=== PATIENT | male | born 1980 | race Caucasian/White ===

== ENCOUNTER 2025-06-10 12:09 | Emergency (ER) | payer MEDICAID ==
[~2025-06-10] VITALS: Ht 182.9 cm; Wt 93.6 kg
[2025-06-10 12:18] VITALS: BP 252/219; PULSE 78; RESP 18; TEMP 97.2; O2SAT 100
--- NOTE | 2025-06-10 13:16 | RADIOLOGY REPORT ---
EXAM: DI CERVICAL SPINE LTD HISTORY: NECK PAIN COMPARISON: None TECHNIQUE: AP, lateral, swimmer's, and odontoid views of the cervical spine were performed. FINDINGS: Fractures or scoliosis are are identified about the cervical spine. There is mild degenerative disc disease and moderate facet arthropathy. There is 3 mm anterolisthesis C4 on C5 without evidence of jumped facet. No significant degenerative changes. IMPRESSION: 1. No fracture of the cervical spine. 2. 3 mm anterolisthesis C4 on C5 without evidence of jumped facet. 3. Degenerative disc disease and facet arthropathy. Consider follow-up noncontrast MRI of the cervical spine for better characterization, especially if the patient complains of upper extremity radicular symptoms.
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
== END 2025-06-10 15:27 | disposition home or self-care (01) ==
LOC: ER 12:10
DX: M54.2 Cervicalgia (principal); Z88.0 Allergy status to penicillin; Z88.2 Allergy status to sulfonamides; V49.9XXA Car occupant (driver) (passenger) injured in unspecified traffic accident, initial encounter; Y93.89 Activity, other specified; Y92.89 Other specified places as the place of occurrence of the external cause; Y99.8 Other external cause status
CPT/HCPCS: 72040; 99284

== ENCOUNTER 2025-08-05 10:01 | Inpatient (IN) | payer MEDICAID ==
[~2025-08-05] VITALS: Ht 185.4 cm; Wt 91.4 kg
[2025-08-05] MEDS ORDERED: normal saline 1000ml 1,000 ML IV ONE (11:15)
[2025-08-05] MEDS: normal saline 1000ml 3,000 ML IV ONE (11:41)
[2025-08-05 11:46] LABS: MEAN PLATELET VOLUME 7.2 FL (7.4-10.4); RED CELL DISTRIBUTION WIDTH 16.6 % (11.5-14.5)
--- NOTE | 2025-08-05 11:46 | Physician Documentation ---
History of Present Illness CC: THERESE WILLSON MD ~ Chief Complaint: Leg Pain Stated Complaint: LEG PAIN Time Seen by MD: 10:56 OK to notify your PCP?: Yes Mode of Arrival: POV HPI 45 year old male came to the ER with cc of right leg swelling and pain for the past 10 days, he denies fever, trauma, he also c/o left leg pain and swelling less severe than the right for the past 4 days. He noticed right leg discharge for the past 2 days. he had previous h/o cellulitis, last hospitalization for cellulitis a year ago, denies h/o MRSA inf recently 2 days ago, he went to [facility] ER and was prescribed po antibiotics, but he couldnt pick them up he is currently homeless, and denies IVDU he has h/o hives to penicllin and sulfa drugs Tetanus witin 5 years: No Medication Reconciliation Allergies: Coded Allergies: Penicillins (Verified Allergy, Unknown, 06/10/25) Sulfa (Sulfonamide Antibiotics) (Verified Allergy, Unknown, 06/10/25) Past Medical History Past Medical History: Seizures Other Past Surgical History: right cheek injury and laceration repair Smoking Status: Former smoker Alcohol Use: Sober Drug Use: none Lives with: Other Lives In: Homeless Occupation: unemployed Review of Systems All Other Systems at this time: Reviewed and Negative Physical Exam Vital Signs: Temperature: 97.9, Source: Oral, Heart Rate: 94, Respiratory Rate: 16, BP: 108/61, Pulse Oximetry: 97, Weight: 91.400 Oxygen Flow Rate: 0 General Appearance: alert, no apparent distress Respiratory: lungs clear, normal breath sounds Chest: no accessory muscle use Cardiovascular: regular rate, rhythm Gastrointestinal: normal palpation, non-tender Legs both legs tender, extensive swelling and erythema present, extending from ankles to the knees, more severe on the right, streaks of redness extending to the thigh, dry and pigmented skin with discharge from the right leg, able to feel DP on both sides Progress Results/Orders Results/Orders Orders - SUZE VENTURA RES Urinalysis (08/05/25 11:11) Drug Screen, Urine (08/05/25 11:11) Vl Venous (08/05/25 11:17) Tib/Fib (08/05/25 11:48) Culture Blood (08/05/25 11:17) Normal Saline 1000ml (0.9% Sodium Chlori (08/05/25 11:40) Completed Orders - SUZE VENTURA RES LA (08/05/25 11:11) Cbc/Diff (08/05/25 11:11) CMP (08/05/25 11:11) Procalcitonin (08/05/25 11:11) Normal Saline 1000ml (0.9% Sodium Chlori (08/05/25 11:15) Vl Venous (08/05/25 11:17) Tib/Fib (08/05/25 11:48) Vancomycin*Pharmacy To Dose* (Vancomycin (08/05/25 11:35) Vancomycin/Ns 1 Gm Add-[place] (Vancomyc (08/05/25 11:45) Potassium Cl Sr Tablet (K-Dur Tablet) (08/05/25 12:40) Ketorolac Trometh 15mg/Ml Vial (Toradol (08/05/25 13:30) Medications Received in ER Medications (Trade) Dose Ordered Sig/Hui Route PRN Reason Start Time Stop Time Status Last Admin Dose Admin Sodium Chloride 3,000 ml @ 1,000 mls/hr ONCE ONCE IV 08/05/25 11:40 08/05/25 14:39 08/05/25 11:41 1,000 MLS/HR Vancomycin HCl 250 ml @ 166 mls/hr ONCE ONCE IV 08/05/25 11:45 08/05/25 13:15 DC 08/05/25 12:48 166 MLS/HR (K-DUR tablet) 20 meq ONCE ONCE PO 08/05/25 12:40 08/05/25 12:42 DC 08/05/25 13:37 20 MEQ (Toradol injection) 15 mg ONCE ONCE IV 08/05/25 13:30 08/05/25 13:31 DC 08/05/25 13:33 15 MG Vital Signs 08/05/25 08/05/25 08/05/25 08/05/25 10:01 10:59 13:33 13:40 Temp 97.9 Pulse 94 92 Resp 16 16 18 16 B/P (MAP) 108/61 138/83 (101) Pulse Ox 97 100 O2 Flow Rate 0 0 Laboratory Tests Test 08/05/25 11:28 08/05/25 11:33 Lactic Acid Level 1.1 White Blood Count 15.5 H Red Blood Count 4.02 L Hemoglobin 11.3 L Hematocrit 33.7 L Mean Corpuscular Volume 83.9 Mean Corpuscular Hemoglobin 28.2 Mean Corpuscular Hemoglobin Concent 33.6 Red Cell Distribution Width 16.6 H Platelet Count 355 Mean Platelet Volume 7.2 L Neutrophils (%) (Auto) 87.3 H Lymphocytes (%) (Auto) 4.1 L Monocytes (%) (Auto) 8.2 Eosinophils (%) (Auto) 0.1 Basophils (%) (Auto) 0.3 Neutrophils # (Auto) 13.5 H Lymphocytes # (Auto) 0.6 L Monocytes # (Auto) 1.3 H Eosinophils # (Auto) 0.0 Basophils # (Auto) 0.0 CBC Comment Sodium Level 133 L Potassium Level 3.2 L Chloride Level 99 Carbon Dioxide Level 23.0 L Anion Gap 11 Blood Urea Nitrogen 7 Creatinine 0.76 Estimated GFR/1.73 m2 > 90 BUN/Creatinine Ratio 9.2 L Glucose Level 102 Calcium Level 8.5 Total Bilirubin 0.4 Aspartate Amino Transf (AST/SGOT) 22 Alanine Aminotransferase (ALT/SGPT) 30 Alkaline Phosphatase 124 H Total Protein 6.5 Albumin 2.3 L Globulin 4.2 Albumin/Globulin Ratio 0.5 L Procalcitonin 0.42 Chemistry Comments Microbiology Date/Time Source Procedure Growth Status 08/05/25 11:33 Blood Arm Left Blood Culture - Preliminary NEGATIVE (LESS THAN 24 HOURS) Resulted Medical Decision Making Additional information obtaine: old records Findings 45 m homeless, presenting with b/l legs erythema, pain and swelling. exam s/o b/l cellulitis right > left other Dd include- right leg DVT and fracture labs ordered- cbc, cmp, procal, lactatem cultures of blood, venoud dopple RLE, and xray RLE As patient appears septic with soft BP- ordered 30ml/kg iv NS bolus and emperically started on iv vanco Labs showed ebc of 15, with normal procal, mild hypokalemia xray elg- no #, no foreign body venous doppler RLE- no DVT, but reactive LN in the groin as patient has extensive cellulitis with sepsis, he is being admitted to the hospitalist service General Diff Dx:Considerations: Include: Other Knee Diff Dx:Considerations: Include: Other Ankle Diff Dx:Considerations: Include: Other Foot Diff Dx:Considerations: Include: Cellulitis Toe Diff Dx:Considerations: Include: Other Additional Comment celluitis of the right knee and leg Departure Time of Disposition: 12:39 Admitted to Inpatient Unit: yes, to hospitalist (sign out given to Dr. Osorio, hospitalist) Impression: Primary Impression: Cellulitis of right lower leg Condition: Guarded Referrals: NO PRIMARY CARE PROVIDER (PCP) Signature Scribe Signature: , Attestation: Findings, assessment and plan, and dispo d/w UMAIR Martínez, RES Aug 05, 2025 11:46
--- NOTE | 2025-08-05 11:58 | RADIOLOGY REPORT ---
CLINICAL INDICATION: PAIN AND SWELLING TECHNIQUE: AP and lateral views of the right lower leg were performed. DI TIB/FIB 2 VWS COMPARISON: None FINDINGS/IMPRESSION: 1. No acute fracture of the right tibia or fibula. 2. Diffuse subcutaneous edema about the right lower leg. No radiopaque foreign bodies are identified in the soft tissues.
[2025-08-05 12:06] LABS: CREATININE 0.76 MG/DL (0.60-1.10); TOTAL CARBON DIOXIDE 23.0 MMOL/L (24-32); eCRCL 136 ML/MIN; eGFR > 90 ML/MIN
--- NOTE | 2025-08-05 12:39 | VASCULAR REPORT ---
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 : SUZE VENTURA, Preliminary Report The above named patient was referred for a NON-INVASIVE LOWER EXTREMITY VENOUS EXAMINATION. The evaluation includes grayscale imaging, color flow Doppler and spectral analysis of the major deep and superficial lower extremity veins. Left Lower Extremity Venous Study for DVT Patient ER [employer] Bilateral lower extremity edema/pain right greater left Vein Imaging (Right) CFV (R): Compressible, Spontaneous, Respirophasic, Augmentation Reflux: ms SFJ (R): Compressible, Spontaneous, Respirophasic, Augmentation Reflux: ms FEM (R): Compressible, Spontaneous, Respirophasic, Augmentation POP (R): Compressible, Spontaneous, Respirophasic, Augmentation Reflux: ms Reflux: ms DFV (R): Compressible, Spontaneous, Respirophasic, Augmentation Reflux: ms PTV (R): Spontaneous, Respirophasic, Augmentation Reflux: ms GSV (R): Compressible, Spontaneous, Respirophasic, Augmentation Reflux: ms Peroneals (R): Spontaneous, Respirophasic, Augmentation Reflux: ms Vein Imaging (Left) CFV (L): Spontaneous, Respirophasic, Augmentation Reflux: ms Impression: No sonographic evidence for thrombus detected by image in the deep or superficial venous systems of the right lower extremity. All vessels interrogated were compressible and augment with distal compressions. Spontaneous, respirophasic flow is noted throughout the right lower extremity. Unable to perform compressions in the calf due to patient's severe pain. The right posterior tibial veins and peroneal veins display [id number] color filling with unremarkable spectral Doppler analysis indicating patency. The contralateral common femoral vein appears patent and display symmetrical waveforms. Incidental finding: Prominent hyper-vascularized lymph node seen in the right groin measuring 1.9 cm x 3.9 cm in transverse. Subcutaneous cobblestoning edema was also noted in the right calf per imaging.
[2025-08-05] MEDS: vancomycin/NS 1 GM ADD-VANTAGE 250 ML X 1 DOSE IV ONE (12:48)
[2025-08-05] MEDS: ketorolac trometh 15mg/ml vial 15 MG/ML ML IV ONE (13:33)
[2025-08-05] MEDS: potassium Cl 20 mEq SR tablet PO ONE (13:37)
[2025-08-05] MEDS ORDERED: magnesium sulf-water 2g/50mL 50 ML IV PRN (13:40)
[2025-08-05] MEDS ORDERED: ondansetron/PF 4mg/2ml inj IV PRN (13:40)
[2025-08-05] MEDS ORDERED: HYDROmorphone/PF 0.2 MG/ML SYRINGE IV PRN (13:40)
[2025-08-05] MEDS ORDERED: magnesium sulf-water 4G/100mL 100 ML IV PRN (13:40)
[2025-08-05] MEDS ORDERED: HYDROcodone/acetaminophen 5mg/325mg tablet PO PRN (13:40)
[2025-08-05] MEDS ORDERED: potassium Cl 20 mEq SR tablet PO PRN (13:40)
[2025-08-05] MEDS ORDERED: potassium Cl 40MEQ/1/2NS 520ml 520 ML IV PRN (13:40)
[2025-08-05] MEDS ORDERED: mag hydrox/Alum hydrox/simeth 30ml oral suspension PO PRN (13:40)
[2025-08-05] MEDS: HYDROmorphone inj. 0.5 MG/0.5 ML DISP.SYRIN IV PRN (14:39)
[2025-08-05] MEDS: cefepime 1GM in D5W 50mL 50 ML IV SCH (16:29)
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
--- NOTE | 2025-08-05 18:12 | RADIOLOGY REPORT ---
PROCEDURE: CT CT LOWER EXTREMITY 08/05/2025 02:38 PM INDICATION: Significant bilateral cellulitis with edema Comparison Study: None TECHNIQUE: Multiple contiguous axial CT images were obtained of the Bilateral lower extremities including the lower thighs and the distal Bilateral lower extremities Include in the ankle and feet and reformatted in coronal and sagittal planes. All CT scans at this medical facility are performed using dose modulation techniques as appropriate to a performed exam including the following: Automated exposure control was utilized; adjustment of the MA and/or KV according to patient size; and use of iterative reconstruction technique. CT Dose: CTDI volume is 7.62+ 0.14 mGy. Dose-length product is 608.82 mGy*cm FINDINGS: Bones: No acute fracture or dislocation. Joint spaces are maintained. No focal osteopenia or cortical destruction is seen to suggest osteomyelitis. Soft tissues: Subcutaneous edema in the Bilateral lower extremities which is greater on the Right Up to moderate in degree. IMPRESSION: No well-formed fluid collection or soft tissue gas. The muscle bundles about the visualized bilateral lower extremities are intact. 1. No acute osseous abnormality. No CT evidence of osteomyelitis. 2. Moderate bilateral subcutaneous edema, greater in the right lower extremity. 3. No well-formed fluid collection or soft tissue gas.
[2025-08-05] MEDS: K and/or MAG REPLACEMENT MC SCH (20:00)
[2025-08-05] MEDS: docusate sod 100mg capsule PO SCH (20:00)
[2025-08-05] MEDS: potassium Cl 20 mEq SR tablet PO PRN (20:25)
[2025-08-05] MEDS: enoxaparin 40mg/0.4ml syringe SQ SCH (20:28)
[2025-08-05] MEDS: vancomycin/NS 1 GM ADD-VANTAGE 250 ML IV SCH (20:34)
[2025-08-06 02:20] VITALS: BP 119/60; PULSE 88; RESP 17; TEMP 98.2; O2SAT 99
[2025-08-06] MEDS: HYDROcodone/acetaminophen 10/325mg tab PO PRN (02:24)
[2025-08-06 06:00] VITALS: BP 113/68; PULSE 74; RESP 16; TEMP 98.3; O2SAT 100
[2025-08-06 06:08] LABS: MEAN PLATELET VOLUME 7.9 FL (7.4-10.4); RED CELL DISTRIBUTION WIDTH 16.7 % (11.5-14.5)
[2025-08-06 06:21] LABS: CREATININE 0.68 MG/DL (0.60-1.10); TOTAL CARBON DIOXIDE 23.3 MMOL/L (24-32); eCRCL 157 ML/MIN; eGFR > 90 ML/MIN
[2025-08-06 08:00] VITALS: RESP 16; O2SAT 100
[2025-08-06] MEDS: fluconazole-Diflucan 200mg/NS 100 ML IV SCH (08:28)
[2025-08-06 10:00] VITALS: BP 117/69; PULSE 99; RESP 20; TEMP 99.4; O2SAT 99
[2025-08-06] MEDS: VANCOMYCIN LEVEL IV ONE (13:17)
[2025-08-06 16:49] LABS: LEUKOCYTE ESTERASE ,URINE NEGATIVE (Neg); NITRITES, URINE NEGATIVE (Neg); OCCULT BLOOD,URINE NEGATIVE (Neg)
[2025-08-06 16:56] LABS: UA COLLECTION TYPE NON-SPECIFIED
[2025-08-06 17:30] LABS: URINE AMPHETAMINE SCREEN POSITIVE (Neg); URINE BARBITUATE SCREEN NEGATIVE (Neg); URINE BENZODIAZEPINES SCREEN NEGATIVE (Neg); URINE CANNABINOID SCREEN POSITIVE (Neg); URINE COCAINE SCREEN NEGATIVE (Neg); URINE METHADONE SCREEN NEGATIVE (Neg); URINE OPIATE SCREEN POSITIVE (Neg); URINE PHENCYCLIDINE SCREEN NEGATIVE (Neg)
[2025-08-06 18:00] VITALS: BP 130/82; PULSE 79; RESP 16; TEMP 98.9; O2SAT 100
--- NOTE | 2025-08-06 19:42 | PROGRESS NOTE ---
Daily Progress Note Providers to CC ~ Antibiotic Timeout Antibiotic Ordered?: Yes Subjective The patient is doing pretty well his white count is downtrending and the area of erythema is receding from the line of demarcation. Objective Vital Signs Date Time Temp Pulse Resp B/P (MAP) Pulse Ox O2 Delivery O2 Flow Rate FiO2 08/06/25 16:52 18 08/06/25 10:00 99.4 99 117/69 (85) 99 Room Air 08/06/25 08:00 0.0 Result Diagram: 08/06/2545408/06/25454 Gen. No acute distress alert and oriented 4 Lungs clear to ascultation bilaterally, no wheezes rales or rhonchi appreciated Heart normal sinus rhythm no murmurs rubs or clicks noted Abdomen soft nontender bowel sounds are normoactive Lower extremities [id number] edema of the left, moderate edema on the right with mild tenderness to palpation of the right lower extremity and erythema encompassing the distal half of the lower extremities bilaterally which is advancing proximally on the right. Patchy scaly appearance throughout the distal lower extremity bilaterally Problem\Assessment\Plan Problems/Diagnosis: (1) Cellulitis of right lower leg # bilateral lower extremity cellulitis with significant edema of the right lower extremity with significant tenderness IV vancomycin IV cefepime A CT scan of the lower extremities bilaterally was negative for any pockets of fluid or gas That has likely a fungal component as that has a patchy scaly appearance and I have added fluconazole. 08/06/2025 erythema is receding from the line of demarcation, and edema is improving. Patchy scales are diminished. # hyponatremia- mild # hypokalemia On the potassium replacement protocol Has not normalized # normocytic anemia Monitor daily labs # TBI with prior seizure activity post Awaiting med reconciliation Seizure precautions # DVT prophylaxis SQ Lovenox Date of Service: Aug 06, 2025 Billing Provider: WILL ALVA DO Common Visit Codes: [id number] INP/OBS CARE(HIGH) WILL ALVA DO Aug 06, 2025 19:42
[2025-08-06] MEDS: VANCOmycin 1250MG/NS 250ml Bag 250 ML IV SCH (20:56)
[2025-08-06 22:00] VITALS: BP 112/60; PULSE 78; RESP 18; TEMP 98; O2SAT 98
[2025-08-07 04:50] LABS: MEAN PLATELET VOLUME 7.4 FL (7.4-10.4); RED CELL DISTRIBUTION WIDTH 17.3 % (11.5-14.5)
[2025-08-07 05:08] LABS: CREATININE 0.62 MG/DL (0.60-1.10); TOTAL CARBON DIOXIDE 26.7 MMOL/L (24-32); eCRCL 172 ML/MIN; eGFR > 90 ML/MIN
[2025-08-07 06:00] VITALS: BP 121/82; PULSE 72; RESP 19; TEMP 99; O2SAT 98
[2025-08-07 08:15] VITALS: RESP 19; O2SAT 98
[2025-08-07 09:12] LABS: HBSAG SCREEN Negative (Negative); HEP B CORE AB, IGM Negative (Negative); HEP B CORE AB, TOT Negative (Negative)
[2025-08-07 10:00] VITALS: BP 129/80; PULSE 86; RESP 20; TEMP 98.6; O2SAT 99
[2025-08-07 18:00] VITALS: BP 127/79; PULSE 75; RESP 16; TEMP 98.1; O2SAT 99
[2025-08-07] MEDS: lactobacillus rhamnosus 10,000 MMU CELLS/CAPSULE PO SCH (19:43)
[2025-08-07 20:00] VITALS: RESP 20; O2SAT 98
[2025-08-07] MEDS: VANCOMYCIN LEVEL IV ONE (20:30)
--- NOTE | 2025-08-07 20:43 | PROGRESS NOTE ---
Daily Progress Note Providers to CC ~ Antibiotic Timeout Antibiotic Ordered?: Yes Subjective The patient is erythema is improving the patient is seen by wound care and recommended outpatient wound care good portion of skin changes were trophic per wound care nurse and are chronic changes Objective Vital Signs Date Time Temp Pulse Resp B/P (MAP) Pulse Ox O2 Delivery O2 Flow Rate FiO2 08/07/25 19:44 18 08/07/25 10:00 98.6 86 129/80 (96) 99 Room Air 08/06/25 20:00 0.0 Result Diagram: 08/07/2542708/07/25427 Gen. No acute distress alert and oriented 4 Lungs clear to ascultation bilaterally, no wheezes rales or rhonchi appreciated Heart normal sinus rhythm no murmurs rubs or clicks noted Abdomen soft nontender bowel sounds are normoactive Lower extremities [id number] edema of the left, moderate edema on the right with mild tenderness to palpation of the right lower extremity and erythema encompassing the distal half of the lower extremities bilaterally which is advancing proximally on the right. Problem\Assessment\Plan Problems/Diagnosis: (1) Cellulitis of right lower leg # bilateral lower extremity cellulitis with significant edema of the right lower extremity with significant tenderness IV vancomycin IV cefepime A CT scan of the lower extremities bilaterally was negative for any pockets of fluid or gas That has likely a fungal component as that has a patchy scaly appearance and I have added fluconazole. 08/06/2025 erythema is receding from the line of demarcation, and edema is improving. Patchy scales are diminished. 08/07/2025 continues to improve evaluated by automatic buffing wheel former who recommended outpatient follow up # hyponatremia- mild # hypokalemia On the potassium replacement protocol Has normalized # normocytic anemia Monitor daily labs Hemoglobin remaines stable # TBI with prior seizure activity post Awaiting med reconciliation Seizure precautions # DVT prophylaxis SQ Lovenox Disposition: Likely discharge within 48 hours with a follow up in outpatient wound care clinic Date of Service: Aug 07, 2025 Billing Provider: WILL ALVA DO Common Visit Codes: [id number] INP/OBS CARE(HIGH) WILL ALVA DO Aug 07, 2025 20:43
[2025-08-07 22:00] VITALS: BP 141/82; PULSE 69; RESP 16; TEMP 99.8; O2SAT 100
[2025-08-08] MEDS: HYDROmorphone inj. 0.5 MG/0.5 ML DISP.SYRIN IV PRN (02:16)
[2025-08-08 04:58] LABS: MEAN PLATELET VOLUME 7.5 FL (7.4-10.4); RED CELL DISTRIBUTION WIDTH 17.0 % (11.5-14.5)
[2025-08-08 05:08] LABS: CREATININE 0.72 MG/DL (0.60-1.10); TOTAL CARBON DIOXIDE 28.3 MMOL/L (24-32); eCRCL 148 ML/MIN; eGFR > 90 ML/MIN
[2025-08-08 06:00] VITALS: BP 119/68; PULSE 70; RESP 18; TEMP 98.8; O2SAT 97
[2025-08-08 06:40] LABS: BANDS% (MANUAL) 1.0 % (0-10); EOSINOPHILS % (MANUAL) 8.0 % (0-6); LYMPHOCYTES % (MANUAL) 22.0 % (21-51); MONOCYTES % (MANUAL) 9.0 % (2-12); MYELOCYTES % (MANUAL) 1.0 % (0-0); NEUTROPHILS % (MANUAL) 59.0 % (42-75); PLATELET ESTIMATE INCREASED
[2025-08-08 06:41] LABS: ELLIPTOCYTES FEW
[2025-08-08 10:00] VITALS: BP 133/79; PULSE 72; RESP 18; TEMP 98.3; O2SAT 95
[2025-08-08] MEDS ORDERED: HYDR-3972 PO (11:58)
[2025-08-08] MEDS ORDERED: CEFD300C3 PO (11:58)
[2025-08-08] MEDS ORDERED: FLUC200T38 PO (11:58)
[2025-08-08] MEDS ORDERED: SACC250C PO (11:58)
[2025-08-08] MEDS ORDERED: VANCOMYCIN/WATER FOR INJ (PEG) 1.5GM/300 ML IVPB IV SCH (13:00)
--- NOTE | 2025-08-08 20:04 | DISCHARGE SUMMARY ---
Discharge Summary Providers to CC ~ Discharge Summary Admission Diagnosis: Bilateral lower extremity cellulitis Hospital Course DATE OF ADMISSION: 08/05/2025 DATE OF DISCHARGE: 08/08/2025 Discharge Diagnosis\\Comment: Bilateral lower extremity cellulitis with secondary Kaylee corporis, mild hypon atremia and hypokalemia, normocytic anemia, TBI with prior seizure activity Operations\\Procedures: None Consultants: city bailiff Complications: None Condition on DC: Stable New Medications: Cefdinir* (Cefdinir*) 300 Mg Capsule 1 CAP PO Q12H, #14 CAP Fluconazole (Diflucan) 200 Mg Tablet 1 TAB PO DAILY for 3 Days, #3 TAB Saccharomyces Boulardii (Florastor) 250 Mg Capsule 1 CAP PO Q12H for loose stool for 10 Days, #20 CAP 0 Refills Hydrocodone Bit/Acetaminophen (Hydrocodon-Acetaminophn 10-325 tablet) 10mg- 325mg Tablet 1 TAB PO Q8H PRN for SEVERE PAIN 7-10, #12 TAB Discharge Summary: I admitted the patient with the following HPI:"This is a 45-year-old male who presents to ED with significant right lower extremity swelling and pain for 10 days he noticed four days ago that is he started developing redness and swelling in his left lower extremity both has been progressively worsening the patient is seen at [facility] ED - 2 days ago and prescribed antibiotics however the patient was unable to picker / packer the antibiotics. The patient is homeless. A venous ultrasound was obtained of the right lower extremity was negative for DVT and an x-ray was obtained. That was negative for fracture due to the significant appearance and tenderness to palpation of his right lower extremity I have ordered a CT of the lower extremities to evaluate for any gas in the tissue." The CT scan was negative for any fluid pocket or gas the patient is on IV cefepime and vancomycin with IV fluconazole and that has significant improvement daily on the appearance of the patient's lower extremities in regard to the edema as well as erythema and scaly patches to the point with the patient was cleared to be discharged on the 08/08/2025. Wound care evaluated the patient and recommended outpatient wound care for which case management we will arrange. [place] [id number] this downtrended and was 8300 on day discharge The patient was discharged with an additional seven days of cefdinir as well as fluconazole for three days and Florastor probiotic for 10 days. The patient requested pain medication for discharge for the patient is discharged with a short script of [place] 05/3251 tablet every 8 hours for severe pain a total of 12 tablets. The patient has a serum sodium 133 on admission in his serum potassium of 3.2 on admission this normalized by the morning of the and remained normal the rest of the hospitalization. Gen. No acute distress alert and oriented 4 Lungs clear to ascultation bilaterally, no wheezes rales or rhonchi appreciated Heart normal sinus rhythm no murmurs rubs or clicks noted Abdomen soft nontender bowel sounds are normoactive Lower extremities no clubbing cyanosis, mild generalized edema, mild generalized erythema bilateral lower extremities The patient felt ready to be discharged and was medically cleared to be discharged on 08/08/2025 The patient was seen and evaluated on day of discharge. Time spent on discharge 40 minutes *Problems/Diagnosis: (1) Cellulitis of right lower leg Status: Acute Total Time Spent on D/C: > 30 Minutes Date of Service: Aug 08, 2025 Billing Provider: WILL ALVA DO Common Visit Codes: [id number]-[id number]/[id number] DISCH DAY >30min WILL ALVA DO Aug 08, 2025 20:04
[2025-08-09] MEDS ORDERED: VANCOMYCIN LEVEL IV ONE (12:30)
== END 2025-08-08 12:53 | disposition home or self-care (01) | DRG 383 ==
LOC: ER 10:01 → ED HOLD 13:50 → SUR 3N 08-06 02:00
PROVIDERS: ADMIT Family Medicine; ATTEND Family Medicine
DX: L03.115 Cellulitis of right lower limb (principal); E87.1 Hypo-osmolality and hyponatremia; L03.116 Cellulitis of left lower limb; D64.9 Anemia, unspecified; E87.6 Hypokalemia; Z59.00 Homelessness unspecified; Z88.0 Allergy status to penicillin; Z88.2 Allergy status to sulfonamides; Z87.891 Personal history of nicotine dependence
CPT/HCPCS: 36415; 73590; 73700; 80048; 80053; 80202; 80305; 81003; 83605; 83735; 84145; 85007; 85025; 86704; 86705; 87040; 87081; 87340; 93971; 96365; 96375; 97116; 97161; 99285; A6223; A6258; A6446; A6449; G0378; J0692; J1171; J1450; J1650; J1885; J3373; J3374; J7030; Q0163